=== PATIENT | female | born 1985 | race Caucasian/White ===

== ENCOUNTER 2017-03-27 00:40 | Emergency (ER) | payer OTHER ==
[2017-03-27 00:51] VITALS: BP 112/68
--- NOTE | 2017-03-27 01:04 | EDM.PDOC ---
ED HPI ENT - General Chief Complaint: ENT Problem Stated Complaint: FACE PAIN Time Seen by Provider: 03/27/17 00:56 - History of Present Illness INITIAL COMMENTS - FREE TEXT/NARRATIVE: 31-year-old female presents emergency room with dental pain. The patient has had right lower teeth and jaw discomfort getting worse over the last couple of days. She has followup with her dentist this coming Saturday. Patient has not checked any dentures but has felt warm at times she denies any significant facial swelling with this. The pain seems to be worse along her right lower jaw and teeth. She's had a Saturday or with a filling apparently has shrunk. 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 History: Reports: Fracture Neurological History: Reports: Headaches, chronic Psychiatric History: Reports: ADHD, Anxiety, Depression - Past Surgical History Female Surgical History: Reports: Breast implant, section, Tubal ligation Musculoskeletal Surgical History: Reports: ORIF Social & Family History - Family History Family Medical History: Noncontributory - Tobacco Use Smoking Status *Q: Current Some Day Smoker Years of Tobacco use: 1 Packs/Tins Daily: 0.2 Used Tobacco, but Quit: No Second Hand Smoke Exposure: No - Caffeine Use Caffeine Use: Reports: Coffee - Alcohol Use Days Per Week of Alcohol Use: 0 - Recreational Drug Use Recreational Drug Use: No Drug Use in Last 12 Months: No Recreational Drug Type: Reports: Marijuana/Hashish - Living Situation & Occupation Living situation: Reports: , with spouse, with family (2 kids) Occupation: unemployed ED ROS ENT - Review of Systems Review Of Systems: See Below Constitutional: Reports: fever. Denies: chills HEENT: Reports: Dental pain Respiratory: Reports: No Symptoms Cardiovascular: Reports: No symptoms GI/Abdominal: Reports: No symptoms ED EXAM, ENT - Physical Exam Exam: See Below Exam Limited By: No limitations General Appearance: alert, no apparent distress Eye Exam: bilateral eye: normal inspection Ears: normal external exam, normal canal, hearing grossly normal, normal TMs Nose: normal inspection, normal mucousa, no blood Mouth/Throat: Normal inspection, Normal lips, Normal oropharynx, Other (Right lower teeth near the rear or tender the second one from liver and the third one from the rear of the most tender there is mild erythema surrounding the base of these teeth one has some decay on the top of the tooth) Head: atraumatic, normocephalic Neck: normal inspection, supple, non-tender, full range of motion. No: lymphadenopathy (L), lymphadenopathy (R) Respiratory/Chest: no respiratory distress, lungs clear, normal breath sounds Cardiovascular: regular rate, rhythm, no murmur Course - Vital Signs Last Recorded V/S: Last Vital Signs Temp 36.6 C 03/27/17 00:48 Pulse 69 03/27/17 00:48 Resp 18 03/27/17 00:48 BP 112/68 03/27/17 00:48 Pulse Ox 100 03/27/17 00:48 - Re-Assessments/Exams Free Text/Narrative Re-Assessment/Exam: 03/27/17 01:20 Patient be started on Pen-Vee K 500mg 4 times a day for 10 days #40 from the machine in the waiting room. She will also receive [place] #10 of the 5 325. One or 2 every 6 hours as needed Departure - Departure Time of Disposition: 01:04 Disposition: Home, Self-Care 01 Clinical Impression: Dental caries Forms: ED Department Discharge Additional Instructions: Return to the emergency room with any questions or problems. Followup with your dentist as soon as you can. Been started on penicillin take one 4 times a day until all gone. Use ibuprofen as needed for pain during the day. He been given [place] use one or 2 every 6 hours as needed for more severe pain. Allow 12 hours after using this medication before driving or returning to work
== END 2017-03-27 01:35 | disposition home or self-care (01) ==
LOC: JD.ED 00:40
DX: K02.9 Dental caries, unspecified (principal); F41.9 Anxiety disorder, unspecified; F32.9 Major depressive disorder, single episode, unspecified; Z98.51 Tubal ligation status; Z88.5 Allergy status to narcotic agent; Z91.09 Other allergy status, other than to drugs and biological substances
CPT/HCPCS: 99283

== ENCOUNTER 2017-05-13 21:13 | Emergency (ER) | payer OTHER ==
[2017-05-13 21:25] VITALS: BP 111/74
--- NOTE | 2017-05-13 21:26 | EDM.PDOC ---
ED HPI GENERAL MEDICAL PROBLEM - General Chief Complaint: Genitourinary Problem Stated Complaint: ABDOMINAL PAIN Time Seen by Provider: 05/13/17 21:26 - History of Present Illness INITIAL COMMENTS - FREE TEXT/NARRATIVE: 31-year-old female presents to the emergency room with a suspected bladder infection. Patient has developed some frequency and a sensation of not completely emptying when she goes. This started this afternoon and into this evening patient denies any fevers or chills no nausea vomiting or diarrhea. Other than this she really doesn't have any abdominal pain. The patient attributes this to possibly having sex in the hot tub. 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: Musculoskeletal History: Reports: Fracture Neurological History: Reports: Headaches, Chronic Psychiatric History: Reports: ADHD, Anxiety, Depression - Past Surgical History Female Surgical History: Reports: Breast Implant, Section, Tubal Ligation Social & Family History - Family History Family Medical History: Noncontributory - Tobacco Use Smoking Status *Q: Current Some Day Smoker Years of Tobacco use: 1 Packs/Tins Daily: 0.2 Used Tobacco, but Quit: No Second Hand Smoke Exposure: No - Caffeine Use Caffeine Use: Reports: Coffee - Alcohol Use Days Per Week of Alcohol Use: 0 - Recreational Drug Use Recreational Drug Use: No Drug Use in Last 12 Months: No Recreational Drug Type: Reports: Marijuana/Hashish - Living Situation & Occupation Living situation: Reports: , with Spouse, with Family Occupation: Unemployed ED ROS GENERAL - Review of Systems Review Of Systems: See Below Constitutional: Reports: No Symptoms Respiratory: Reports: No Symptoms Cardiovascular: Reports: No Symptoms GI/Abdominal: Reports: No Symptoms ED EXAM, GI/ABD - Physical Exam Exam: See Below Exam Limited By: No Limitations General Appearance: Alert, No Apparent Distress Head: Atraumatic, Normocephalic Neck: Normal Inspection, Supple, Non-Tender, Full Range of Motion. No: Lymphadenopathy (L), Lymphadenopathy (R) Respiratory/Chest: No Respiratory Distress, Lungs Clear, Normal Breath Sounds Cardiovascular: Regular Rate, Rhythm, No Edema, No Murmur GI/Abdominal: Normal Bowel Sounds, Soft, Other (Mild suprapubic discomfort otherwise no other abdominal discomfort no rebound guarding or rigidity noted) Back Exam: Normal Inspection. No: CVA Tenderness (L), CVA Tenderness (R) Course - Vital Signs Last Recorded V/S: Last Vital Signs Temp 36.8 C 05/13/17 21:21 Pulse 77 05/13/17 21:21 Resp 16 05/13/17 21:21 BP 111/74 05/13/17 21:21 Pulse Ox 98 05/13/17 21:21 - Orders/Labs/Meds Labs: Laboratory Tests 05/13/17 Range/Units 21:25 Urine Color Yellow (Yellow) Urine Appearance Cloudy H (Clear) Urine pH 5.5 (5.0-8.0) Ur Specific [place] > or = 1.030 (1.005-1.030) Urine Protein Trace H (Negative) Urine Glucose (UA) Negative (Negative) Urine Ketones Negative (Negative) Urine Occult Blood 1+ H (Negative) Urine Nitrite Negative (Negative) Urine Bilirubin Negative (Negative) Urine Urobilinogen 0.2 (0.2-1.0) Ur Leukocyte Esterase 2+ H (Negative) Urine RBC 0-5 (0-5) /hpf Urine WBC >100 H (0-5) /hpf Urine WBC Clumps Few (NOT SEEN) /hpf Ur Epithelial Cells 0-5 (0-5) /hpf Urine Bacteria Few (FEW) /hpf Urine Mucus Few (FEW) /hpf - Re-Assessments/Exams Free Text/Narrative Re-Assessment/Exam: 05/13/17 22:22 Urinalysis is suggestive of infectious process patient will be started on Macrobid. 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 Departure - Departure Time of Disposition: 22:26 Disposition: Eloped 07 Clinical Impression: UTI (urinary tract infection) Qualifiers: Urinary tract infection type: acute cystitis Hematuria presence: with hematuria Qualified Code(s): N30.01 - Acute cystitis with hematuria - Discharge Information Prescriptions: Nitrofurantoin [place]/Macrocryst [Macrobid] 100 mg PO BID #14 cap Forms: ED Department Discharge Additional Instructions: Return to the emergency room with any questions or problems. Follow-up in the clinic 3-5 days after you're done with the antibiotic.
== END 2017-05-13 22:15 | disposition left against medical advice (07) ==
LOC: JD.ED 21:13
DX: N30.01 Acute cystitis with hematuria (principal); F17.210 Nicotine dependence, cigarettes, uncomplicated; F41.9 Anxiety disorder, unspecified; F32.9 Major depressive disorder, single episode, unspecified; Z88.5 Allergy status to narcotic agent; Z98.82 Breast implant status; Z98.51 Tubal ligation status
CPT/HCPCS: 81001; 99283

== ENCOUNTER 2018-07-16 23:05 | Emergency (ER) | payer MEDICAID, OTHER ==
[2018-07-16 23:11] VITALS: BP 131/78
--- NOTE | 2018-07-16 23:21 | EDM.PDOC ---
ED HPI GENERAL MEDICAL PROBLEM - General Chief Complaint: ENT Problem Stated Complaint: TOOTH PAIN Time Seen by Provider: 07/16/18 23:21 Source of Information: Reports: Patient History Limitations: Reports: No Limitations - History of Present Illness INITIAL COMMENTS - FREE TEXT/NARRATIVE: Patient is a 32-year-old female presents ED complaining of pain to the #16 tooth. This is broken at the gumline requires a root canal. This been an ongoing issue and states she cannot afford the root canal. Patient is on Medicaid and they do not cover dental procedures as such. She was recently on a antibiotic for UTI approximately 2 weeks ago. She can't remember when the last time she was on antibiotic for a dental infection. There is swelling to the gumline with worsening pain on palpation. No fever, no chills, no trismus, no difficulty swallowing, no neck discomfort, no facial swelling, no other complaints. She denies being . 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 History: Reports: 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 Neurological History: Reports: Headaches, Chronic Psychiatric History: Reports: ADHD, Anxiety, Depression - Past Surgical History Female Surgical History: Reports: Breast Implant, Section, Tubal Ligation Social & Family History - Family History Family Medical History: Noncontributory - Tobacco Use Smoking Status *Q: Never Smoker - Caffeine Use Caffeine Use: Reports: Coffee, Energy Drinks, Soda, Tea - Recreational Drug Use Recreational Drug Use: No - Living Situation & Occupation Living situation: Reports: , with Spouse, with Family Occupation: Unemployed ED ROS ENT - Review of Systems Review Of Systems: ROS reveals no pertinent complaints other than HPI. ED EXAM, ENT - Physical Exam Exam: See Below Exam Limited By: No Limitations General Appearance: Alert, WD/WN, No Apparent Distress Ears: Hearing Grossly Normal Nose: Normal Inspection Mouth/Throat: Normal Inspection, Normal Lips, Normal Oropharynx, Dental Abcess ( Number 16 tooth), Dental Tenderness (#16 tooth), Gum Swelling (Along the #16 tooth), Other (#16 tooth is broken at the gumline with swelling noted. No drainage.). No: Drooling, Dry Mucous Membrane, Peritonsillar Mass, Pharyngeal Erythema, Throat Pain, Throat Swelling, Tongue Swelling, Tonsillar Erythema, Tonsillar Exudates, Tonsillar Swelling, Trismus, Uvular Deviation Head: Atraumatic, Normocephalic Neck: Normal Inspection, Supple, Non-Tender, Full Range of Motion. No: Lymphadenopathy (L), Lymphadenopathy (R) Respiratory/Chest: No Respiratory Distress, Lungs Clear, Normal Breath Sounds, No Accessory Muscle Use, Chest Non-Tender Cardiovascular: Normal Peripheral Pulses, Regular Rate, Rhythm Neurological: Alert, Oriented, CN II-XII Intact, Normal Cognition, No Motor/ Sensory Deficits Psychiatric: Normal Affect, Normal Mood Skin: Warm, Dry, Intact, Normal Color, No Rash Course - Vital Signs Last Recorded V/S: Last Vital Signs Temp 97.1 F 07/16/18 23:10 Pulse 86 07/16/18 23:10 Resp 20 07/16/18 23:10 BP 131/78 07/16/18 23:10 Pulse Ox 96 07/16/18 23:10 - Orders/Labs/Meds Orders: Active Orders 24 hr Category Date Time Status Ketorolac [Toradol] Med 07/16/18 23:30 Once 30 mg IM ONETIME ONE Penicillin V Potassium [Veetids] Med 07/16/18 23:30 Once 500 mg PO ONETIME ONE - Re-Assessments/Exams Free Text/Narrative Re-Assessment/Exam: Placed topical novocaine to the affected tooth. Patient is allergic to any narcotics. She is not . I ordered Toradol 30 mg IM. Also ordered penicillin 500 mg by mouth. We'll discharge patient home with instructions as documented. Definitive treatment will be seen oral surgeon.The patient remained hemodynamically stable while under my care in the E.D. I discussed the concerning symptoms for which to returnto the E.D. with the patient. The patient verbalized understanding. All questions were answered. Departure - Departure Time of Disposition: 23:34 Disposition: Home, Self-Care 01 Condition: Good Clinical Impression: Dental abscess - Discharge Information Prescriptions: Penicillin V Potassium 500 mg PO Q6HR #40 tab Instructions: Dental Abscess Referrals: Marjan Whitlock NP [Primary Care Provider] - Forms: ED Department Discharge Additional Instructions: CSee a oral surgeon for definitive treatment. Take penicillin as prescribed. Suggest taking a [id number] probiotic as well. Utilize Tylenol and ibuprofen and alternating fashion for pain. Refrain from chewing on the affected site. Return to the ED if you develop any new or worsening symptoms. May use any OTC topical oral pain meds. - My Orders Last 24 Hours: My Active Orders 07/16/18 23:30 Ketorolac [Toradol] 30 mg IM ONETIME ONE Penicillin V Potassium [Veetids] 500 mg PO ONETIME ONE - Assessment/Plan Last 24 Hours: My Active Orders 07/16/18 23:30 Ketorolac [Toradol] 30 mg IM ONETIME ONE Penicillin V Potassium [Veetids] 500 mg PO ONETIME ONE
[2018-07-16] MEDS ORDERED: Penicillin V Potassium 500 MG Tab PO ONE (23:30)
[2018-07-16] MEDS ORDERED: Ketorolac 30 MG/ML SDV IM ONE (23:30)
== END 2018-07-16 23:45 | disposition home or self-care (01) ==
LOC: JD.ED 23:05
DX: K04.7 Periapical abscess without sinus (principal); Z88.5 Allergy status to narcotic agent; Z91.048 Other nonmedicinal substance allergy status; Z79.899 Other long term (current) drug therapy
CPT/HCPCS: 96372; 99283; A9270; J1885

== ENCOUNTER 2018-07-17 07:13 | Emergency (ER) | payer MEDICAID ==
[2018-07-17 07:27] VITALS: BP 120/93
--- NOTE | 2018-07-17 08:22 | EDM.PDOC ---
ED HPI GENERAL MEDICAL PROBLEM - General Chief Complaint: ENT Problem Stated Complaint: TOOTH PAIN Time Seen by Provider: 07/17/18 07:55 Source of Information: Reports: Patient, RN Notes Reviewed - History of Present Illness INITIAL COMMENTS - FREE TEXT/NARRATIVE: 32-year-old female returns with left upper jaw pain. It's her left posterior molar has given her trouble off and on for about a year. She states she "pulled out with student services counselor about 6 months ago. Over there are apparently some fragments remaining. She did start having pain again about a week ago more severe yesterday. She presented to the ED last evening was started on penicillin and it sounds like she was given a shot of Toradol for pain. The pain is severe this morning not relieved by ibuprofen. She is also asking for a written referral to see an oral surgeon. Left Tooth/Teeth Pain Score (Numeric/FACES): 10 - Related Data Allergies Allergy/AdvReac Type Severity Reaction Status Date / Time morphine Allergy Airway Verified 03/27/17 00:48 Tightness nickel Allergy Rash Verified 03/27/17 00:48 Home Meds: Home Meds Penicillin V Potassium 500 mg PO Q6HR #40 tab 07/16/18 [Rx] Vortioxetine Hydrobromide [Trintellix] 5 mg PO DAILY 07/16/18 [History] Acetaminophen/HYDROcodone [[place] 325-5 MG] 1 tab PO Q4H PRN #14 tablet 07/17/18 [Rx] Past Medical History HEENT History: Reports: Other (See Below) Other HEENT History: dental issues Genitourinary History: Reports: Renal Calculus 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: Reports: 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 Neurological History: Reports: Headaches, Chronic Psychiatric History: Reports: ADHD, Anxiety, Depression - Past Surgical History Female Surgical History: Reports: Breast Implant, Section, Tubal Ligation Social & Family History - Family History Family Medical History: Noncontributory - Tobacco Use Smoking Status *Q: Current Every Day Smoker Years of Tobacco use: 12 Packs/Tins Daily: 0.2 Used Tobacco, but Quit: No - Caffeine Use Caffeine Use: Reports: Soda - Recreational Drug Use Recreational Drug Use: No - Living Situation & Occupation Living situation: Reports: , with Spouse, with Family Occupation: Unemployed ED ROS ENT - Review of Systems Review Of Systems: See Below Constitutional: Denies: Fever, Chills HEENT: Reports: Dental Pain Respiratory: Denies: Shortness of Breath GI/Abdominal: Denies: Nausea, Vomiting Musculoskeletal: Reports: No Symptoms Skin: Reports: No Symptoms Neurological: Reports: No Symptoms ED EXAM, ENT - Physical Exam Exam: See Below General Appearance: Alert, Moderate Distress Eye Exam: Bilateral Eye: PERRL Ears: Normal External Exam Nose: Normal Inspection Mouth/Throat: Other (Left upper posterior molar has been extracted. No visible gum swelling, no drainage, anterior molar left upper jaw mildly sensitive to tap and pressure, no visible swelling, no visible cavitation.) Head: Facial Tenderness (Left maxillary area of face). No: Facial Swelling Neck: Supple, Full Range of Motion. No: Lymphadenopathy (L), Lymphadenopathy (R ) Respiratory/Chest: No Respiratory Distress, Lungs Clear Cardiovascular: Regular Rate, Rhythm Neurological: Alert, Oriented, No Motor/Sensory Deficits Skin: Warm, Dry, Normal Color Course - Vital Signs Last Recorded V/S: Last Vital Signs Temp 98.1 F 07/17/18 07:24 Pulse 84 07/17/18 07:24 Resp 20 07/17/18 07:24 BP 120/93 H 07/17/18 07:24 Pulse Ox 95 07/17/18 07:24 Departure - Departure Time of Disposition: 08:20 Disposition: Home, Self-Care 01 Condition: Fair Clinical Impression: Pain, dental - Discharge Information Prescriptions: Acetaminophen/HYDROcodone [[place] 325-5 MG] 1 tab PO Q4H PRN #14 tablet PRN Reason: Pain Instructions: Preventive Dental Care, Adult Referrals: Marjan Whitlock NP [Primary Care Provider] - Forms: ED Department Discharge, ED Return to Work/School Form Additional Instructions: Continue penicillin antibiotic as prescribed last evening. Advil or ibuprofen 600 mg 3 times daily with food, you may take Tylenol in between doses for extra pain relief or hydrocodone if needed for severe pain. Do not take Tylenol and hydrocodone at the same time. Do not drive or work when taking hydrocodone. See Oral Surgeon next available appointment for further evaluation, possible surgery for fragment removal.
== END 2018-07-17 08:43 | disposition home or self-care (01) ==
LOC: JD.ED 07:13
DX: K08.89 Other specified disorders of teeth and supporting structures (principal); F17.210 Nicotine dependence, cigarettes, uncomplicated; Z88.5 Allergy status to narcotic agent; Z88.8 Allergy status to other drugs, medicaments and biological substances
CPT/HCPCS: 99282

== ENCOUNTER 2018-08-18 00:38 | Emergency (ER) | payer MEDICAID ==
[2018-08-18 00:52] VITALS: BP 115/74
[2018-08-18] MEDS ORDERED: Amoxicillin 500 MG Cap PO ONE (01:07)
--- NOTE | 2018-08-18 01:07 | EDM.PDOC ---
ED HPI GENERAL MEDICAL PROBLEM - General Chief Complaint: ENT Problem Stated Complaint: tooth pain Time Seen by Provider: 08/18/18 00:59 Source of Information: Reports: Patient, RN Notes Reviewed - History of Present Illness INITIAL COMMENTS - FREE TEXT/NARRATIVE: 32-year-old female presents with left dental pain. She is having this on and off for about a year, much more discomfort the last few days. She states that this was last treated about a month ago and with antibiotics the pain did get better, now getting much worse. She has an appointment to be seen by either a dentist or oral surgeon and my not in about 10 days. She has had some chills but no fever. She's been taking a lot of Advil or ibuprofen with minimal relief. 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 Neurological History: Reports: Headaches, Chronic Psychiatric History: Reports: ADHD, Anxiety, Depression - Past Surgical History Female Surgical History: Reports: Breast Implant, Section, Tubal Ligation Social & Family History - Family History Family Medical History: Noncontributory - Tobacco Use Smoking Status *Q: Current Every Day Smoker Years of Tobacco use: 2 Packs/Tins Daily: 0.2 Used Tobacco, but Quit: No - Caffeine Use Caffeine Use: Reports: Coffee, Soda - Recreational Drug Use Recreational Drug Use: No - Living Situation & Occupation Living situation: Reports: , with Spouse, with Family Occupation: Unemployed ED ROS ENT - Review of Systems Review Of Systems: See Below Constitutional: Reports: Chills. Denies: Fever HEENT: Reports: Dental Pain Respiratory: Denies: Shortness of Breath Cardiovascular: Denies: Chest Pain GI/Abdominal: Denies: Abdominal Pain, Nausea, Vomiting ED EXAM, ENT - Physical Exam Exam: See Below General Appearance: Alert, Moderate Distress Eye Exam: Bilateral Eye: PERRL Nose: Normal Inspection Mouth/Throat: Dental Pain (Left upper posterior molar is broken off at the gumline. No major swelling of the abdomen at this time, no visible drainage there is localized tenderness) Head: Facial Tenderness. No: Facial Swelling Neck: Supple. No: Lymphadenopathy (L), Lymphadenopathy (R) Respiratory/Chest: No Respiratory Distress Neurological: Alert, Oriented, No Motor/Sensory Deficits Skin: Warm, Dry, Normal Color, No Rash Course - Vital Signs Last Recorded V/S: Last Vital Signs Temp 97.8 F 08/18/18 00:49 Pulse 69 08/18/18 00:49 Resp 18 08/18/18 00:49 BP 115/74 08/18/18 00:49 Pulse Ox 96 08/18/18 00:49 - Orders/Labs/Meds Meds: Medications Discontinued Medications Generic Name Dose Route Start Last Admin Trade Name [place] PRN Reason Stop Dose Admin Amoxicillin 1,000 mg 08/18/18 01:07 08/18/18 01:13 Amoxil PO 08/18/18 01:08 1,000 mg ONETIME ONE Administration Departure - Departure Time of Disposition: 01:11 Disposition: Home, Self-Care 01 Condition: Fair Clinical Impression: Pain, dental - Discharge Information Instructions: Pain Medicine Instructions, [id number] Referrals: Marjan Whitlock NP [Primary Care Provider] - Forms: ED Department Discharge Additional Instructions: Amoxicillin 1000 mg twice daily for the next week or until gone, Advil or ibuprofen 600 mg 3 times daily, he may take Tylenol in between doses for extra pain relief or her coat on if needed for severe pain. Do not take Tylenol and hydrocodone at the same time. Do not drive or work when taking hydrocodone. See dentist or oral surgeon next week as planned.
== END 2018-08-18 01:20 | disposition home or self-care (01) ==
LOC: JD.ED 00:38
DX: K08.89 Other specified disorders of teeth and supporting structures (principal); Z88.5 Allergy status to narcotic agent; Z88.8 Allergy status to other drugs, medicaments and biological substances; F17.210 Nicotine dependence, cigarettes, uncomplicated
CPT/HCPCS: 99283; A9270

== ENCOUNTER 2018-12-13 01:35 | Emergency (ER) | payer BC, MEDICAID ==
[2018-12-13 01:45] VITALS: BP 122/77
--- NOTE | 2018-12-13 02:06 | EDM.PDOC ---
ED HPI GENERAL MEDICAL PROBLEM - General Chief Complaint: ENT Problem Stated Complaint: TOOTHACHE Time Seen by Provider: 12/13/18 01:47 Source of Information: Reports: Patient History Limitations: Reports: No Limitations - History of Present Illness INITIAL COMMENTS - FREE TEXT/NARRATIVE: This is a 33-year-old female. Onset of right upper molar tooth pain since last night. She has been taking Aleve and ibuprofen but it isn't seeming to help. Her dentist is in [place]. She was supposed to be at work right now but she comes to the ER due to the tooth pain. He denies any drainage she denies any bad taste in her mouth. She has no swelling of her cheek. She denies any other acute symptoms. When I indicated to the patient that we don't provide narcotics for tooth pain but I will give her some antibiotics and she needs to take the Aleve and ibuprofen, she shortly came out of the room asking the nurses to talk to me because she needs something for pain. She appeared to be sobbing or crying but she had no tears. I indicated out provide some tramadol only but no narcotics. Tooth/Teeth Pain Score (Numeric/FACES): 10 - Related Data Allergies Allergy/AdvReac Type Severity Reaction Status Date / Time morphine Allergy Airway Verified 12/13/18 01:45 Tightness nickel Allergy Rash Verified 12/13/18 01:45 Home Meds: Home Meds Dextroamphetamine/Amphetamine [Adderall 20 mg Tablet] 20 mg PO DAILY 12/13/18 [ History] Penicillin V Potassium 500 mg PO TID #30 tab 12/13/18 [Rx] traMADol [Ultram] 50 mg PO TID PRN #10 tablet 12/13/18 [Rx] Past Medical History HEENT History: Reports: Other (See Below) Other HEENT History: dental issues Genitourinary History: Reports: Renal Calculus PHOTOGEOLOGIST History: Reports: Musculoskeletal History: Reports: Fracture Neurological History: Reports: Headaches, Chronic Psychiatric History: Reports: ADHD, Anxiety, Depression - Past Surgical History Female Surgical History: Reports: Breast Implant, Section, Tubal Ligation Social & Family History - Family History Family Medical History: Noncontributory - Tobacco Use Smoking Status *Q: Current Every Day Smoker Years of Tobacco use: 15 Packs/Tins Daily: 0.5 - Caffeine Use Caffeine Use: Reports: Coffee, Soda - Recreational Drug Use Recreational Drug Use: No - Living Situation & Occupation Living situation: Reports: , with Spouse, with Family Occupation: Unemployed ED ROS ENT - Review of Systems Review Of Systems: See Below Constitutional: Denies: Fever, Chills HEENT: Reports: Dental Pain Respiratory: Reports: No Symptoms Cardiovascular: Reports: No Symptoms Endocrine: Reports: No Symptoms GI/Abdominal: Reports: No Symptoms : Reports: No Symptoms Musculoskeletal: Reports: No Symptoms Skin: Reports: No Symptoms Neurological: Reports: No Symptoms Psychiatric: Reports: No Symptoms Hematologic/Lymphatic: Reports: No Symptoms ED EXAM, ENT - Physical Exam Exam: See Below Exam Limited By: No Limitations General Appearance: Alert, WD/WN, Mild Distress Eye Exam: Bilateral Eye: Normal Inspection Ears: Normal External Exam Nose: Normal Inspection Mouth/Throat: Other (Patient has several teeth with advanced dental caries, the tooth in question is the mid molar in the right upper jaw that is also fractured but it looks old, there is no gum swelling there is no soft tissue swelling next to it, there is no drainage) Head: Normocephalic Neck: Supple, Other (No lymphadenopathy at the angle of the jaw ) Respiratory/Chest: No Respiratory Distress Back: Full Range of Motion Extremities: Normal Inspection, Normal Range of Motion Neurological: Alert, Oriented Psychiatric: Tearful Skin: Warm, Dry Course - Vital Signs Last Recorded V/S: Last Vital Signs Temp 96.5 F 12/13/18 01:42 Pulse 127 H 12/13/18 01:42 Resp 16 12/13/18 01:42 BP 122/77 12/13/18 01:42 Pulse Ox 98 12/13/18 01:42 - Orders/Labs/Meds Orders: Active Orders 24 hr Category Date Time Status cefTRIAXone [Rocephin] 0.25 gm Med 12/13/18 02:15 Active Lidocaine 1% [Xylocaine 1%] 2.1 ml IM Q24H Medication Orders Ceftriaxone Sodium 0.25 gm/ (Lidocaine HCl 2.1 ml) 0 gm IM Q24H MAU Meds: Medications Generic Name Dose Route Start Last Admin Trade Name Freq PRN Reason Stop Dose Admin Ceftriaxone Sodium 0.25 gm/ 0 gm 12/13/18 02:15 Lidocaine HCl 2.1 ml IM Q24H MAU Departure - Departure Time of Disposition: 02:02 Disposition: Home, Self-Care 01 Condition: Good Clinical Impression: Pain, dental, Dental caries, Dental infection - Discharge Information *PRESCRIPTION DRUG MONITORING PROGRAM REVIEWED*: Not Applicable *COPY OF PRESCRIPTION DRUG MONITORING REPORT IN PATIENT KIM: Not Applicable Prescriptions: Penicillin V Potassium 500 mg PO TID #30 tab traMADol [Ultram] 50 mg PO TID PRN #10 tablet PRN Reason: Pain Referrals: PCP,None [Primary Care Provider] - Forms: ED Department Discharge, ED Return to Work/School Form Additional Instructions: Whatever feels best use ice or heat to your cheek to help with the soreness and pain, take Aleve and ibuprofen as needed for the pain, start the antibiotics in the morning as soon as you get them, follow up with your dentist this week for recheck and repair of your teeth - My Orders Last 24 Hours: My Active Orders 12/13/18 02:15 cefTRIAXone [Rocephin] 0.25 gm Lidocaine 1% [Xylocaine 1%] 2.1 ml IM Q24H - Assessment/Plan Last 24 Hours: My Active Orders 12/13/18 02:15 cefTRIAXone [Rocephin] 0.25 gm Lidocaine 1% [Xylocaine 1%] 2.1 ml IM Q24H
[2018-12-13] MEDS ORDERED: cefTRIAXone 0.25 GM, Lidocaine 1% 2.1 ML IM SCH ×2 (02:15)
== END 2018-12-13 02:35 | disposition home or self-care (01) ==
LOC: JD.ED 01:35
DX: K02.9 Dental caries, unspecified (principal); K04.7 Periapical abscess without sinus; F17.210 Nicotine dependence, cigarettes, uncomplicated; Z79.899 Other long term (current) drug therapy; Z88.5 Allergy status to narcotic agent; Z91.09 Other allergy status, other than to drugs and biological substances
CPT/HCPCS: 96372; 99283; J0696

== ENCOUNTER 2019-01-14 18:20 | Emergency (ER) | payer BC ==
[2019-01-14 18:32] VITALS: BP 109/59
--- NOTE | 2019-01-14 19:17 | EDM.PDOC ---
ED HPI GENERAL MEDICAL PROBLEM - General Chief Complaint: Genitourinary Problem Stated Complaint: PAINFUL URINATION Time Seen by Provider: 01/14/19 18:52 Source of Information: Reports: Patient, RN Notes Reviewed - History of Present Illness INITIAL COMMENTS - FREE TEXT/NARRATIVE: 33 year old female with voiding sx yesterday and today, similar to previous UTI ' that she has had, last UTI about a yr ago. No fever, chills, nausea or vomiting. Lower Abdominal Pain Score (Numeric/FACES): 5 - Related Data Allergies Allergy/AdvReac Type Severity Reaction Status Date / Time morphine Allergy Airway Verified 01/14/19 18:26 Tightness nickel Allergy Rash Verified 01/14/19 18:26 Home Meds: Home Meds Dextroamphetamine/Amphetamine [Adderall 20 mg Tablet] 20 mg PO DAILY 12/13/18 [ History] Past Medical History HEENT History: Reports: Other (See Below) Other HEENT History: dental issues Genitourinary History: Reports: Renal Calculus [employer] History: Reports: Musculoskeletal History: Reports: Fracture Neurological History: Reports: Headaches, Chronic Psychiatric History: Reports: ADHD, Anxiety, Depression - Past Surgical History Female Surgical History: Reports: Breast Implant, Section, Tubal Ligation Social & Family History - Family History Family Medical History: Noncontributory - Tobacco Use Smoking Status *Q: Current Some Day Smoker Years of Tobacco use: 2 Packs/Tins Daily: 0.1 - Caffeine Use Caffeine Use: Reports: Coffee - Recreational Drug Use Recreational Drug Use: No - Living Situation & Occupation Living situation: Reports: , with Spouse, with Family Occupation: Unemployed ED ROS GENERAL - Review of Systems Review Of Systems: See Below Constitutional: Denies: Fever, Chills HEENT: Reports: No Symptoms. Denies: Vision Change Cardiovascular: Denies: Chest Pain GI/Abdominal: Denies: Abdominal Pain, Nausea, Vomiting : Reports: Dysuria, Frequency, Urgency Musculoskeletal: Denies: Back Pain Skin: Reports: No Symptoms Neurological: Reports: No Symptoms ED EXAM, RENAL/ - Physical Exam Exam: See Below General Appearance: Alert, No Apparent Distress Head: Atraumatic Neck: Supple Respiratory/Chest: No Respiratory Distress, Lungs Clear Cardiovascular: Regular Rate, Rhythm Back Exam: No: CVA Tenderness (L), CVA Tenderness (R) Extremities: Normal Inspection Neurological: Alert, No Motor/Sensory Deficits Skin Exam: Warm, Dry, Normal Color Course - Vital Signs Last Recorded V/S: Last Vital Signs Temp 97.2 F 01/14/19 18:30 Pulse 70 01/14/19 18:30 Resp 16 01/14/19 18:30 BP 109/59 L 01/14/19 18:30 Pulse Ox 98 01/14/19 18:30 - Orders/Labs/Meds Labs: Laboratory Tests 01/14/19 Range/Units 18:30 Urine Color Yellow (Yellow) Urine Appearance Cloudy H (Clear) Urine pH 6.5 (5.0-8.0) Ur Specific [place] 1.025 (1.005-1.030) Urine Protein 1+ H (Negative) Urine Glucose (UA) Negative (Negative) Urine Ketones Trace H (Negative) Urine Occult Blood 1+ H (Negative) Urine Nitrite Negative (Negative) Urine Bilirubin Negative (Negative) Urine Urobilinogen 0.2 (0.2-1.0) Ur Leukocyte Esterase 3+ H (Negative) Urine RBC 10-20 H (0-5) /hpf Urine WBC >100 H (0-5) /hpf Ur Epithelial Cells 40-50 H (0-5) /hpf Urine Bacteria Few (FEW) /hpf Urine Mucus Not seen (FEW) /hpf Departure - Departure Time of Disposition: 19:13 Disposition: Home, Self-Care 01 Condition: Fair Clinical Impression: UTI (urinary tract infection) Qualifiers: Urinary tract infection type: acute cystitis Hematuria presence: without hematuria Qualified Code(s): N30.00 - Acute cystitis without hematuria - Discharge Information Instructions: Urinary Tract Infection, Adult, [id number] Referrals: Marjan Whitlock NP [Primary Care Provider] - Forms: ED Department Discharge Additional Instructions: drink plenty of fluids, cipro 500 mg twice daily for 10 days, follow up clinic as needed, return to ED as needed
== END 2019-01-14 19:22 | disposition home or self-care (01) ==
LOC: JD.ED 18:20
DX: N30.00 Acute cystitis without hematuria (principal); F17.210 Nicotine dependence, cigarettes, uncomplicated; Z88.5 Allergy status to narcotic agent; Z79.899 Other long term (current) drug therapy
CPT/HCPCS: 81001; 99283

== ENCOUNTER 2019-01-24 15:49 | Emergency (ER) | payer BC ==
[2019-01-24 16:04] VITALS: BP 109/59
== END 2019-01-24 17:00 | disposition left against medical advice (07) ==
LOC: JD.ED 15:49
DX: Z53.21 Procedure and treatment not carried out due to patient leaving prior to being seen by health care provider (principal)

== ENCOUNTER 2019-05-23 14:56 | Emergency (ER) | payer BC | END 2019-05-23 15:10 | LOC: JD.ED 14:56 | DX: Z53.21 Procedure and treatment not carried out due to patient leaving prior to being seen by health care provider (principal) ==

== ENCOUNTER 2021-01-05 18:28 | Emergency (ER) | payer BC, OTHER ==
[2021-01-05 19:17] VITALS: BP 125/78; PULSE 78
--- NOTE | 2021-01-05 19:43 | EDM.PDOC ---
ED HPI GENERAL MEDICAL PROBLEM - General Chief Complaint: Gastrointestinal Problem Stated Complaint: RECTAL BLEEDING Time Seen by Provider: 01/05/21 19:15 Source of Information: Reports: Patient History Limitations: Reports: No Limitations - History of Present Illness INITIAL COMMENTS - FREE TEXT/NARRATIVE: Ms. Robles is a pleasant 35-year-old woman who now presents to the ED stating that she has had painless bright red blood per rectum with bowel movements for the past week, since , 12/29/2020. She states that she started feeling weak and lightheaded 3 days ago. No recent fever, nausea, vomiting, constipation, diarrhea, or urinary symptoms. No prior similar symptoms. The patient states that she has not taken any [id number] or home remedies to try to treat the bleeding. Here in the ED, the patient is found to be hemodynamically stable, afebrile, saturating 100% on room air. Prior to 1 week ago, the patient denies having a recent fever, chills, sore throat, ear pain, nasal or sinus congestion, cough, dyspnea, chest pain, palpitations, nausea, vomiting, constipation, diarrhea, abdominal pain, urinary symptoms, recent weight gain or weight loss, recent bloody bowel movements or black bowel movements, recent joint aches, headaches, or rashes. The patient's PCP is Marjan Whitlock NP. She has not received an influenza vaccine this season, and declined an offer to receive one here in the ED. - Related Data Allergies Allergy/AdvReac Type Severity Reaction Status Date / Time morphine Allergy Airway Verified 01/05/21 19:14 Tightness nickel Allergy Rash Verified 01/05/21 19:14 Home Meds: Home Meds . [No Known Home Meds] 01/05/21 [History] Past Medical History Genitourinary History: Reports: Renal Calculus Musculoskeletal History: Reports: Fracture (right tibia) Psychiatric History: Reports: ADHD (untreated), Anxiety (untreated), Depression (untreated) - Past Surgical History HEENT Surgical History: Reports: Oral Surgery (dental extractions) Female Surgical History: Reports: Breast Implant, Section (x 2), Tubal Ligation Other Female Surgeries/Procedures: breast augmentation Musculoskeletal Surgical History: Reports: ORIF (right tibia, with subsequent hardware removal) Social & Family History - Tobacco Use Tobacco Use Status *Q: Former Tobacco User Years of Tobacco use: 4 Packs/Tins Daily: 1 Month/Year Tobacco Last Used: Quit Jul 2020 - Caffeine Use Caffeine Use: Reports: Coffee, Soda - Alcohol Use Alcohol Use History: Yes Alcohol Use Frequency: Socially - Recreational Drug Use Recreational Drug Use: Yes Drug Use in Last 12 Months: No Recreational Drug Type: Reports: Marijuana/Hashish (last smoked 2016) - Living Situation & Occupation Living situation: Reports: , with Significant Other (Boyfriend), with Family (one child full-time, another child part-time) Occupation: Unemployed ED ROS GENERAL - Review of Systems Review Of Systems: Comprehensive ROS is negative, except as noted in HPI. ED EXAM, GI/ABD - Physical Exam Exam: See Below Exam Limited By: No Limitations General Appearance: Alert, WD/WN, No Apparent Distress Eyes: Bilateral: Normal Appearance, EOMI Ears: Normal External Exam, Hearing Grossly Normal Nose: Normal Inspection Throat/Mouth: Normal Inspection, Normal Lips, Normal Voice, No Airway Compromise Head: Atraumatic, Normocephalic Neck: Normal Inspection, Full Range of Motion Respiratory/Chest: No Respiratory Distress, Lungs Clear, Normal Breath Sounds, No Accessory Muscle Use Cardiovascular: Normal Peripheral Pulses, Regular Rate, Rhythm, No Edema, No Gallop, No JVD, No Murmur, No Rub GI/Abdominal Exam: Normal Bowel Sounds, Soft, Non-Tender, No Organomegaly, No Distention, No Abnormal Bruit, No Mass Rectal (Female) Exam: Normal Rectal Tone, Heme - Stool, Hemorrhoids (enlarged but non-thrombosed left lateral and right posterior). No: Tenderness Back Exam: Normal Inspection, Full Range of Motion, NT Extremities: Normal Inspection, Normal Range of Motion, No Pedal Edema, Normal Capillary Refill Neurological: Alert, Oriented, Normal Cognition, No Motor/Sensory Deficits Psychiatric: Normal Affect Skin Exam: Warm, Dry, Intact, Normal Color, No Rash Course - Vital Signs Last Recorded V/S: Last Vital Signs Temp 36.4 C 01/05/21 19:14 Pulse 78 01/05/21 19:14 Resp 16 01/05/21 19:14 BP 125/78 01/05/21 19:14 Pulse Ox 100 01/05/21 19:14 - Orders/Labs/Meds Labs: Laboratory Tests 02/04/21 02/04/21 Range/Units 19:50 19:50 WBC 5.85 (3.98-10.04) K/mm3 RBC 4.43 (3.98-5.22) M/mm3 Hgb 13.8 (11.2-15.7) gm/dl Hct 41.7 (34.1-44.9) % MCV 94.1 (79.4-94.8) fl MCH 31.2 (25.6-32.2) pg MCHC 33.1 (32.2-35.5) g/dl RDW Std Deviation 41.2 (36.4-46.3) fL Plt Count 209 (182-369) K/mm3 MPV 10.1 (9.4-12.3) fl Neutrophils % (Manual) 55 (40-60) % Band Neutrophils % 0 (0-10) % Lymphocytes % (Manual) 35 (20-40) % Atypical Lymphs % 0 % Monocytes % (Manual) 9 (2-10) % Eosinophils % (Manual) 1 (0.7-5.8) % Basophils % (Manual) 0 L (0.1-1.2) Platelet Estimate Adequate Plt Morphology Comment Normal RBC Morph Comment Normal Sodium 142 (136-145) mEq/L Potassium 4.1 (3.5-5.1) mEq/L Chloride 104 (98-107) mEq/L Carbon Dioxide 28 (21-32) mEq/L Anion Gap 14.1 (5-15) BUN 16 (7-18) mg/dL Creatinine 1.0 (0.55-1.02) mg/dL Est Cr Clr Drug Dosing 74.91 mL/min Estimated GFR (MDRD) > 60 (>60) mL/min BUN/Creatinine Ratio 16.0 (14-18) Glucose 94 (74-106) mg/dL Calcium 10.0 (8.5-10.1) mg/dL Magnesium 2.0 (1.8-2.4) mg/dl Total Bilirubin 0.4 (0.2-1.0) mg/dL AST 21 (15-37) U/L ALT 30 (14-59) U/L Alkaline Phosphatase 35 L (46-116) U/L Total Protein 7.6 (6.4-8.2) g/dl Albumin 4.2 (3.4-5.0) g/dl Globulin 3.4 gm/dL Albumin/Globulin Ratio 1.2 (1-2) - Re-Assessments/Exams Free Text/Narrative Re-Assessment/Exam: 01/05/21 19:38 As above, the patient reports having bright red blood per rectum with bowel movements since last , and now feels weak and lightheaded for the past 3 days. On rectal exam, she has enlarged but non-thrombosed left lateral and right posterior hemorrhoids that are not tender and not bleeding at this time. Hemoccult negative finger. I have ordered a work-up that includes orthostatics and some blood work. 01/05/21 20:35 Notified that the patient needs to leave due to a family emergency. Her CBC, CMP, and magnesium levels are all within normal limits. Orthostatics were not collected. My suspicion is that the bright red blood that the patient has seen with bowel movements is due to her hemorrhoids. Since she has to leave right now, I will have her follow-up with her PCP in that regard. Departure - Departure Time of Disposition: 20:36 Disposition: Home, Self-Care 01 Condition: Good Clinical Impression: Hemorrhoids, Bright red blood per rectum - Discharge Information *PRESCRIPTION DRUG MONITORING PROGRAM REVIEWED*: Not Applicable *COPY OF PRESCRIPTION DRUG MONITORING REPORT IN PATIENT KIM: Not Applicable Instructions: Hemorrhoids, [id number] Referrals: Marjan Whitlock NP [Primary Care Provider] - Forms: ED Department Discharge Additional Instructions: You were seen in the emergency room for 1 week of bright red blood with bowel movements, and 3 days of feeling weak and lightheaded. Work-up in the ER included several blood tests, all of which returned normal. Positional blood pressure checks were ordered, but not performed. You have elected to go home without your work-up being completed. Based on your history, physical exam, and ER tests available, the source of your bleeding is most likely a hemorrhoid. We recommend that you follow-up with your PCP, Marjan Whitlock NP, at the next available appointment, to discuss long-term treatments for hemorrhoids. If any other problems, please do not hesitate to return to the ER. Sepsis Event Note (ED) - Evaluation Sepsis Screening Result: No Definite Risk - Focused Exam Vital Signs: Vital Signs Temp Pulse Resp BP Pulse Ox 01/05/21 19:14 36.4 C 78 16 125/78 100
== END 2021-01-05 20:55 | disposition home or self-care (01) ==
LOC: JD.ED 18:28
DX: K64.9 Unspecified hemorrhoids (principal); K62.5 Hemorrhage of anus and rectum; Z87.891 Personal history of nicotine dependence; Z88.5 Allergy status to narcotic agent; Z91.048 Other nonmedicinal substance allergy status
CPT/HCPCS: 36415; 80053; 83735; 85007; 85027; 99283

== ENCOUNTER 2021-12-23 02:24 | Emergency (ER) | payer BC ==
[2021-12-23 02:49] VITALS: BP 108/74; PULSE 100
[2021-12-23] MEDS ORDERED: Sodium Chloride 0.9% 1,000 ML IV ONE (03:19)
[2021-12-23] MEDS ORDERED: Benztropine 1 MG Tab PO STA (03:19)
[2021-12-23] MEDS ORDERED: Ondansetron 4 MG/2 ML SDV IVPUSH ONE (03:19)
[2021-12-23] MEDS ORDERED: Ketorolac 30 MG/ML SDV IVPUSH STA (03:19)
[2021-12-23] MEDS ORDERED: Haloperidol Lactate 5 MG/ML SDV IM ONE (03:19)
== END 2021-12-23 05:00 | disposition home or self-care (01) ==
LOC: JD.ED 02:24
DX: U07.1 COVID-19 (principal); G43.109 Migraine with aura, not intractable, without status migrainosus; F17.210 Nicotine dependence, cigarettes, uncomplicated; Z88.5 Allergy status to narcotic agent; Z91.048 Other nonmedicinal substance allergy status
CPT/HCPCS: 36415; 80053; 81001; 81025; 83690; 85025; 87635; 96372; 96374; 96375; 99284; A9270; J1630; J1885; J2405; J7030; U0002